=== PATIENT | male | born 1985 | race Caucasian/White ===

== ENCOUNTER 2023-09-07 11:28 | Day surgery (SDC) | payer BC ==
[~2023-09-07] VITALS: Ht 185.4 cm; Wt 105.0 kg
[~2023-09-07 11:28] MED LIST: NO HOME MEDICATIONS
[2023-09-07 13:14] VITALS: BP 112/67; PULSE 46; TEMP 98.3
[2023-09-07] MEDS ORDERED: PERCOCET 325 MG1 TA2 PO (13:44)
[2023-09-07] MEDS ORDERED: MOTRIN 600600 MG/TAB PO (13:44)
[2023-09-07 15:42] VITALS: BP 107/64; PULSE 50; TEMP 97.6
[2023-09-07 15:56] VITALS: BP 112/72; PULSE 54
[2023-09-07 16:34] VITALS: BP 115/68; PULSE 56; TEMP 97.1
--- NOTE | 2023-09-07 16:34 | NUR ---
1542-REPORT OBTAINED FROM ARAVIND WYNN. PATIENT ARRIVED TO [facility] VIA CART, ALERT AND ORIENTED ON ARRIVAL. VITAL SIGNS TAKEN, VSS. INCISION SITES CDI. PATIENT DENIES PAIN OR NAUSEA. PATIENT'S FAMILY MEMBERS BROUGHT TO BEDSIDE, UPDATE GIVEN. PO INTAKE GIVEN. 1600-PT TOLERATING PO INTAKE WELL. DENIES COMPLAINTS. VSS. 1615-DISCHARGE INSTRUCTIONS REVIEWED WITH PT AND FAMILY, QUESTIONS INVITED. IV CATHETER DISCONTINUED, TIP INTACT. PRESSURE HELD AND BANDAGE APPLIED. PATIENT DRESSED INDEPENDENTLY. 1625-PATIENT DISCHARGED HOME TO [facility] VIA WHEELCHAIR, ACCOMPANIED BY FAMILY. ALL BELONGINGS AND D/C PAPERWORK SENT WITH PT.
== END 2023-09-07 16:25 | disposition home or self-care (01) ==
LOC: SDCO 11:28
DX: K40.90 Unilateral inguinal hernia, without obstruction or gangrene, not specified as recurrent (principal)
CPT/HCPCS: C1781; J0330; J0690; J1100; J1885; J2250; J2405; J2704; J3010; J7120